=== PATIENT | female | born 1970 | race Caucasian/White ===

== ENCOUNTER → 2023-08-20 08:56 | Outpatient (BNVA) | payer SELFPAY | PROVIDERS: Family Provider Nurse Practitioner; PCP Nurse Practitioner Family; Visit Provider Nurse Practitioner Family | DX: Z01.89 Encounter for other specified special examinations (principal); I10 Essential (primary) hypertension ==

== ENCOUNTER → 2023-10-01 14:51 | Outpatient (BNVA) | payer OTHER, SELFPAY | PROVIDERS: Family Provider Nurse Practitioner; PCP Nurse Practitioner Family; Visit Provider Nurse Practitioner Family | DX: M25.531 Pain in right wrist (principal); S62.101A Fracture of unspecified carpal bone, right wrist, initial encounter for closed fracture; X58.XXXA Exposure to other specified factors, initial encounter | CPT/HCPCS: 73110 ==

== ENCOUNTER → 2023-10-03 13:18 | Outpatient (BNVA) | payer OTHER, SELFPAY | PROVIDERS: Family Provider Nurse Practitioner; PCP Nurse Practitioner Family; Visit Provider Nurse Practitioner | DX: S52.591A Other fractures of lower end of right radius, initial encounter for closed fracture; W00.9XXA Unspecified fall due to ice and snow, initial encounter | CPT/HCPCS: 73110 ==

== ENCOUNTER 2023-10-03 15:40 | Outpatient (CLI) | payer OTHER, SELFPAY | END 2023-10-03 15:41 | disposition home or self-care (01) | LOC: SPT 15:41 | PROVIDERS: Family Provider Nurse Practitioner; PCP Nurse Practitioner Family; Visit Provider Nurse Practitioner | DX: Z46.89 Encounter for fitting and adjustment of other specified devices (principal); S62.101D Fracture of unspecified carpal bone, right wrist, subsequent encounter for fracture with routine healing; X58.XXXD Exposure to other specified factors, subsequent encounter | CPT/HCPCS: 97760; L3982 ==

== ENCOUNTER → 2023-10-09 15:33 | Outpatient (BNVA) | payer OTHER, SELFPAY | PROVIDERS: Family Provider Nurse Practitioner; PCP Nurse Practitioner Family; Visit Provider Nurse Practitioner | DX: S52.591A Other fractures of lower end of right radius, initial encounter for closed fracture (principal); W00.9XXA Unspecified fall due to ice and snow, initial encounter | CPT/HCPCS: 73030; 73110 ==

== ENCOUNTER 2023-10-14 08:50 | Outpatient (CLI) | payer OTHER, SELFPAY ==
--- NOTE | 2023-10-14 09:00 | CT_ITS ---
WS: [id number] CT RIGHT WRIST, NONCONTRAST, 3D. HISTORY: Right wrist fx Technique: All CT scans at [facility] use at least one of these dose optimization techniques: automated exposure control; mA and/or kV adjustment per patient size (includes targeted exams where dose is matched to clinical indication); or iterative reconstruction. DLP: 98.32 mGy.cm COMPARISON: Radiograph 10/09/2023 There is a comminuted fracture involving the radial metaphysis with extension to the articular surfac e. Fracture extends to involve the radial styloid. There is lateral and medial displacement of the fr acture fragments of the metaphysis. Very slight dorsal displacement by approximately 4 mm. There are small comminuted fragments along the articular surface. The ulna is intact. Scapholunate interval is 4 mm. There is a tiny well-circumscribed osseous or calcific density distal to the scaphoid which may not be related to the trauma. Carpal rows are normal. IMPRESSION: 1. Comminuted radial metaphyseal fracture with medial, lateral and dorsal displacement. Fracture ext ends intra-articular. 2. Distal ulna is normal. 3. Scapholunate interval is 4 mm.
== END 2023-10-14 08:51 | disposition home or self-care (01) ==
LOC: RAD 08:50
PROVIDERS: Family Provider Nurse Practitioner; PCP Nurse Practitioner Family; Visit Provider Nurse Practitioner
DX: S52.591A Other fractures of lower end of right radius, initial encounter for closed fracture (principal); W00.9XXA Unspecified fall due to ice and snow, initial encounter
CPT/HCPCS: 73200

== ENCOUNTER 2023-10-21 05:47 | Day surgery (SDC) | payer OTHER, SELFPAY ==
[2023-10-21] VITALS (17 sets, daily range): BP systolic 108–142; BP diastolic 60–86; PULSE 69–79; RESP 10–22; TEMP 36.2–36.7; O2SAT 93–100; BMI 27.4
--- NOTE | 2023-10-21 | XR_ITS ---
WS: [id number] INTRAOPERATIVE TECHNIQUE: 4 Spot fluoroscopic images for intraoperative purposes. FLUOROSCOPY TIME: 65.4 seconds CLINICAL INFORMATION: orif wrist, or pic COMPARISON: None. FINDINGS: Plate and screw fixation distal radius fracture. Hardware appears in good position. IMPRESSION: Images obtained for intraoperative purposes.
--- NOTE | 2023-10-21 06:19 | W.PM.OPSUD ---
Surgery/Procedure H&P Update DATE OF PROCEDURE: October 21, 2023 DATE H&P PERFORMED: 10/18/23 H&P UPDATE INFORMATION: I have reviewed H&P completed within last 30 days, I have examined patient prior to procedure and No changes to prior documentation PREOP DIAGNOSIS: right distal radius fracture PLANNED PROCEDURE: Operation Date: 10/21/23 07:00 Proposed Procedures p ORIF Wrist/ Right wrist open reduction internal fixation(Right) - Lew Dykes DO
[2023-10-21] MEDS: acetaminophen 1,000 MG/100 ML PIGGYBACK 400 MG IV (06:40)
[2023-10-21] MEDS: sodium chloride 0.9% 1,000 ML 30 ML IV (06:46)
[2023-10-21] MEDS: CELEcoxib 200 mg Capsule 400 MG PO (06:46)
[2023-10-21] MEDS: gabapentin 300 mg Capsule PO (06:46)
[2023-10-21 06:55] LABS: OR HCG Qualitative Urine Negative (Negative)
[2023-10-21] MEDS: clindamycin 600 MG/50 ML PREMIX 100 MG IV (07:01)
[2023-10-21] MEDS: lidocaine 2% INJ 20 mL INJECTION (07:37)
--- NOTE | 2023-10-21 08:34 | P.OP_ITS ---
Operative Report Date of procedure: October 21, 2023 Pre-op diagnosis: Right intra-articular distal radius fracture (2 joint fragments) Post-op diagnosis: same Procedure done: Open reduction internal fixation of intra-articular distal radius fracture with 2 articular pieces Surgeon: Lew Dykes DO Estimated blood loss (mL): 5 Procedure: Open reduction internal fixation of intra-articular distal radius fracture with 2 articular pieces Patient brought the op suite after undergoing anesthesia placed in the supine position. All areas impingement well-padded. Patient's prepped draped normal sterile fashion. Skin incision made over the FCR. The fascia was cut the quadratus is reflected ulnarly. Fracture is identified Pierre Part was used to free up the pieces elevated up at a point point reduction clamp was used to clamp the fragments together in the joint. Then a plate was placed with a K wire. And then 3 locking screws were placed distally 2 cortical screws were placed proximally AP lateral fluoroscopy ensured the fracture and hardware in good position. Wounds were irrigated and closed with Vicryl and Monocryl suture. Sterile dressings applied patient transferred to the PACU in stable condition.
[2023-10-21] MEDS: fentaNYL 50 mcg/mL INJ 2mL IVP ×2 (08:38→08:48)
--- NOTE | 2023-10-21 09:29 | ANES.PREANE2 ---
Pre-Anesthetic Assessment Height/Weight: Height 1.63 m Weight 72.575 kg Temp Pulse Resp BP Pulse Ox O2 Del Method 97.1 F L 70 18 120/78 98 Room Air 10/21/23 09:25 10/21/23 09:25 10/21/23 09:25 10/21/23 09:25 10/21/23 09:25 10/21/23 09:25 Preop Diagnosis: right distal radius fracture Operation Date: 10/21/23 07:00 Proposed Procedures p ORIF Wrist/ Right wrist open reduction internal fixation(Right) - Lew Dykes DO Familial anesthetic complications: none Was Beta Ady taken within 24 hours: N/A Was Clonidine taken within 24 hours: N/A Last intake: Intake Last Liquid Date 10/20/23 Last Liquid Time 21:00 Last Solid Date 10/20/23 Last Solid Time 21:00 Social No alcohol and No tobacco Exam alert, oriented x 3, clear to auscultation bilaterally and regular rate & rhythm Airway Submandibular: within normal limits Cervical ROM: within normal limits Mallampati: Class II Dentition: full CV/HEM Hypertension GI Gastroesophageal Reflux Disease Neuropsych Anxiety and Depression Anesthetic Plan ASA status: 2 Anesthesia: General and Regional (specify below) (Discussed postop extremity block if pain an issue postop.) Medications/Allergies Home Medications Medication Instructions Recorded Confirmed Last Taken Type buspirone 15 mg tablet 15 mg PO BID #180 tabs 06/26/23 10/18/23 10/20/23 Rx lisinopril 10 mg tablet 10 mg PO DAILY #90 tabs 06/26/23 10/18/23 10/20/23 Rx metoclopramide HCl 10 mg tablet 10 mg PO DAILY PRN nausea and 06/26/23 10/18/23 10/20/23 Rx (Reglan) vomiting #90 tabs norethindrone (contraceptive) 0.35 See Rx Instructions .Route 06/26/23 10/18/23 10/20/23 Rx mg tablet (Silvana) .COMPLEX #84 tabs pantoprazole 40 mg tablet,delayed 40 mg PO DAILY #90 tabs 06/26/23 10/18/23 10/18/23 Rx release (Protonix) triamterene 37.5 1 tab PO DAILY #90 tabs 06/26/23 10/18/23 10/18/23 Rx mg-hydrochlorothiazide 25 mg tablet alprazolam 0.5 mg tablet (Xanax) 0.5 mg PO BID PRN anxiety 30 days 09/25/23 10/18/23 10/20/23 Rx #45 tabs citalopram 10 mg tablet (Celexa) 10 mg PO DAILY #30 tabs 09/25/23 10/18/23 10/20/23 Rx tramadol 50 mg tablet 50 mg PO BID PRN pain #60 tabs 09/25/23 10/18/23 10/18/23 Rx fast form right #1 ea 10/03/23 10/18/23 Unknown Rx hydrocodone 7.5 mg-acetaminophen 1 tab PO Q8H PRN pain 4 days #10 10/10/23 10/21/23 10/20/23 Rx 325 mg tablet tabs oxycodone-acetaminophen 10 mg-325 1 tab PO Q4H PRN pain 7 days #40 10/21/23 Unknown Rx mg tablet tabs Allergies Allergy/AdvReac Type Severity Reaction Status Date / Time Penicillins Allergy Intermediate RASH Verified 10/18/23 16:18 codeine Allergy ADR-Vomitin Verified 10/18/23 16:18 g Current Medications Generic Name Dose Route Start Last Admin Trade Name Freq PRN Reason Stop Dose Admin Sodium Chloride 1,000 mls @ 30 mls/hr 10/21/23 06:45 10/21/23 06:46 Sodium Chloride 0.9% IV 10/22/23 06:44 30 mls/hr .Q24H JUANJOSE Administration PFSH Anesthesia Medical History Right shoulder pain Fall due to slipping on ice or snow Closed fracture of right distal radius Chronic low back pain Hypersomnia Delayed gastric emptying Torn meniscus Carpal tunnel syndrome, bilateral Anxiety and depression GERD (gastroesophageal reflux disease) Hypertension Surgical History Hx of cholecystectomy Family History Father Heart disease Postsurgical cardiac pacemaker in situ Grandmother Glaucoma Social History Smoking and tobacco/nicotine status: never used tobacco/nicotine Second hand smoke exposure: No Alcohol intake: never Substance/Drug Use: never Household members: spouse and children Marital status: Current occupational status: employed Current gender identity: Female Luz/[employer]ian: Zoroastrianism Special luz needs: No Data Anesthesia Cardiac Studies: No Data to Display
--- NOTE | 2023-10-21 09:31 | ANES.PROC ---
Anesthesia Procedures Procedure/Date: 10/21/23 Nerve Block ^: Nerve Block 1: Main Anesthesia: general anesthesia Time Out Performed: Yes Consent: requested by attending/covering physician, from patient, risks and benefits reviewed and patient agrees to proceed Nerve block location: supraclavicular (Right) Anesthesia monitors applied: pulse oximetry, EKG, BP cuff and oxygen Nerve block position: semi sitting Anesthetic Used: ropivicaine 0.5% Amount of anesthesia used (mL): 30 Ultrasound used to: recognize landmarks and visualize and ID brachial plexus Nerve Stimulator Used?: No Interscalene/Femoral BLK: 2 stimuplex 22 g needle used for position and inplane approach Injection: neg aspiration of heme Patient Tolerated Procedure: well Complications: none
--- NOTE | 2023-10-21 16:15 | ANE.PACU2 ---
Inpatient post-anesthesia follow up: Airway intact: Yes Vital signs: Temperature 97.1 F Pulse Rate 72 Respiratory Rate 18 Blood Pressure 122/80 Pulse Oximetry 98 Oxygen Delivery Me thod Room Air Oxygen Flow Rate Fraction of Inspir ed Oxygen Hydration adequate: Yes Nausea and vomiting: No Pain level: 1 Mental status: Baseline Additional Comments: Peripheral nerve block placed in PACU.
== END 2023-10-21 10:07 | disposition home or self-care (01) ==
PROVIDERS: Anesthesiology; PCP Nurse Practitioner Family; Visit Provider Orthopaedic Surgery
PROC: (CPT 25608; principal; 2023-10-21 07:00)
DX: S52.571A Other intraarticular fracture of lower end of right radius, initial encounter for closed fracture (principal); W00.0XXA Fall on same level due to ice and snow, initial encounter; I10 Essential (primary) hypertension; K21.9 Gastro-esophageal reflux disease without esophagitis; F41.9 Anxiety disorder, unspecified; F32.A Depression, unspecified
CPT/HCPCS: 25608; 73100; 76000; 81025; 84703; C1713; J0131; J2405; J2704; J2795; J3010; J3490; J7030

== ENCOUNTER → 2023-11-05 08:04 | Outpatient (BNVA) | payer OTHER, SELFPAY | PROVIDERS: PCP Nurse Practitioner Family; Visit Provider Orthopaedic Surgery | DX: S52.591D Other fractures of lower end of right radius, subsequent encounter for closed fracture with routine healing (principal); X58.XXXD Exposure to other specified factors, subsequent encounter | CPT/HCPCS: 73110 ==

== ENCOUNTER 2023-11-05 11:56 | Outpatient (CLI) | payer OTHER, SELFPAY | END 2023-11-05 11:57 | disposition home or self-care (01) | LOC: SPT 11:56 | PROVIDERS: PCP Nurse Practitioner Family; Visit Provider Orthopaedic Surgery | DX: Z46.89 Encounter for fitting and adjustment of other specified devices (principal); S52.591D Other fractures of lower end of right radius, subsequent encounter for closed fracture with routine healing; X58.XXXD Exposure to other specified factors, subsequent encounter | CPT/HCPCS: L3908 ==

== ENCOUNTER → 2023-11-28 12:57 | Outpatient (BNVA) | payer OTHER, SELFPAY | PROVIDERS: PCP Nurse Practitioner Family; Visit Provider Orthopaedic Surgery | DX: S52.591D Other fractures of lower end of right radius, subsequent encounter for closed fracture with routine healing (principal); X58.XXXD Exposure to other specified factors, subsequent encounter | CPT/HCPCS: 73110 ==

== ENCOUNTER 2024-01-10 13:00 | Outpatient (CLI) | payer OTHER, SELFPAY ==
--- NOTE | 2024-01-10 13:00 | MR_ITS ---
WS: [id number] MRI RIGHT SHOULDER NONCONTRAST TECHNIQUE: Sagittal T2, coronal T1, T2 and proton density imaging. Axial gradient PDE imaging. CLINICAL INFORMATION: shoulder pain COMPARISON: None. FINDINGS: Advanced degenerative arthritis AC joint with fluid and edema. Hypertrophic changes at the AC joint. Subacromial subdeltoid fluid. Mild downsloping acromion with severe narrowing of the subacromial spac e. Moderate degenerative narrowing at the glenohumeral articulation. Advanced chronic thinning of the distal supraspinatus with complete tear retracted to the glenohumera l joint. Near complete loss of the subacromial space at the level of the supraspinatus. Advanced chronic thinning with chronic high-grade tear of the distal infraspinatus with a few residua l fibers visualized. Normal teres minor. Chronic tear of the transverse ligament subscapularis. Bicep s tendon is absent from the bicipital groove and not well visualized. This is likely chronically torn . Hypertrophic ridging along the bicipital groove. Degenerative fraying of the glenoid labrum which appears grossly intact. Normal bone marrow signal in the glenoid. Degenerative changes involving the greater tuberosity. Tiny intra-articular biceps tend on remnant MR/MR shoulder RT wo con* [id number] IMPRESSION: Some images limited by motion 1. Advanced arthritis of the AC joint with fluid and edema. Near complete loss of the subacromial space. Subacromial subdeltoid fluid. 2. 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 High-grade near complete tear of the infraspinatus. 3. Chronic tear of the transverse ligament subscapularis with absence of the b iceps tendon from the bicipital groove likely chronically torn. 4. Very tiny intra-articular biceps tendon remnant. 5. Moderate degenerative narrowing of the glenohumeral articulation. 6. No acute fractures.
== END 2024-01-10 13:01 | disposition home or self-care (01) ==
LOC: RAD 13:00
PROVIDERS: PCP Nurse Practitioner Family; Visit Provider Orthopaedic Surgery
DX: M75.121 Complete rotator cuff tear or rupture of right shoulder, not specified as traumatic (principal); M13.811 Other specified arthritis, right shoulder; M25.511 Pain in right shoulder
CPT/HCPCS: 73221